=== PATIENT | male | born 1960 | race Caucasian/White ===

== ENCOUNTER 2017-05-13 12:08 | Inpatient (IN) | payer MEDICARE, MEDICAID ==
[2017-05-07 16:43] LABS: BASOPHILS % (AUTO) 0.2 % (0-1); EOSINOPHILS # (AUTO) 0.1 X10'3 (0-0.9); EOSINOPHILS % (AUTO) 1.3 % (0-6); LYMPHOCYTES # (AUTO) 1.9 X10'3 (1.1-4.8); LYMPHOCYTES % (AUTO) 25.2 % (21-51); MEAN CORPUSCULAR HEMOGLOBIN 30.3 PG (27.0-31.0); MEAN CORPUSCULAR HGB CONC 34.1 % (33.0-36.5); MEAN PLATELET VOLUME 8.4 FL (7.4-10.4); MONOCYTES # (AUTO) 0.4 X10'3 (0-0.9); MONOCYTES % (AUTO) 5.2 % (2-12); NEUTROPHILS # (AUTO) 5.1 X10'3 (1.8-7.7); NEUTROPHILS % (AUTO) 68.1 % (42-75); PRE OP HEMATOCRIT 40.9 % (42.0-52.0); PRE OP HEMOGLOBIN 13.9 g/dL (14.0-17.9); PRE OP PLATELET COUNT 187 X10'3 (140-440); RED BLOOD COUNT 4.59 X10'6 (4.70-6.10); RED CELL DISTRIBUTION WIDTH 13.1 % (11.5-14.5)
[2017-05-07 16:53] LABS: PRE OP PROTIME 10.4 SECONDS (9.0-12.0)
[2017-05-07 16:53] LABS: CLARITY,URINE Clear (Clear); COLOR,URINE Yellow (Yellow); GLUCOSE, URINE Negative (Neg); KETONES,URINE Negative (Neg); LEUKOCYTE ESTERASE ,URINE Negative (Neg); NITRITES, URINE Negative (Neg); OCCULT BLOOD,URINE Negative (Neg); PROTEIN,URINE Negative (Neg)
[2017-05-07 16:55] LABS: UA COLLECTION TYPE NON-SPECIFIED
[2017-05-07 16:57] LABS: ALBUMIN 3.6 G/DL (3.4-5.0); ALKALINE PHOSPHATASE 46 IU/L (46-116); BLOOD UREA NITROGEN 18 MG/DL (7-18); BUN/CREATININE RATIO 19.8 (5.4-32.0); CALCIUM 8.6 MG/DL (8.5-10.1); CHLORIDE 104 MMOL/L (99-107); CREATININE 0.91 MG/DL (0.60-1.10); PRE OP ALT 43 U/L (30-65); PRE OP ANION GAP 6 (8-16); PRE OP AST 26 U/L (10-37); PRE OP BILIRUB, TOTAL 0.5 MG/DL (0.0-1.0); PRE OP GLUCOSE 103 MG/DL (70-104); PRE OP POTASSIUM 4.3 MMOL/L (3.4-5.1); PRE OP SODIUM 138 MMOL/L (135-145); TOTAL PROTEIN 7.1 G/DL (6.4-8.2); eGFR 86 ML/MIN
[~2017-05-13] VITALS: Ht 170.2 cm; Wt 109.0 kg
[2017-05-13] VITALS (17 sets, daily range): BP systolic 93–157; BP diastolic 44–84
[~2017-05-13 12:08] MED LIST: ASPI-1265 PO; ATOR40TA PO; BACL20TA PO; CARV-50 PO; DOCUMENT DATE & TIME OF BETA-BLOCKER PO ONE; GABA; GABA600T2 PO; MACA500C; POLY17PO10 PO; ROPIVAcaine 0.5% (5mg/ml) 30ml vial ONE; TIZA4CAP PO; TRAZ-146 PO; VALE500C; acetaminophen 325mg tablet PO ONE; ceFAZolin inj. 2,000 MG in dextrose 5%-water 100 ML IV ONE; cefazolin/dext.iso 2gm/50ml 50 ML IV ONE; celeCOXIB 100mg capsule PO ONE; epiNEPHrine 1 mg/ml inj ONE; famotidine 20mg tablet PO ONE; gabapentin 300mg capsule PO ONE; ketorolac trometh. 30mg/ml inj. ONE; metoclopramide 5 mg/ml inj IV ONE; oxyCODONE SR 10mg (sust. release) tab PO ONE; ringers solution, lacted 1,000 ML IV SCH; tranexamic acid inj. 1,000 MG in normal saline 100ml IV soln 90 ML IV ONE; vancomycin 1,000mg inj ONE; vancomycin inj 1,500 MG in normal saline 300ml IV soln IV ONE
[2017-05-13] MEDS ORDERED: ringers solution, lacted 1,000 ML IV SCH (12:15)
[2017-05-13] MEDS ORDERED: ondansetron/PF 4mg/2ml inj IV PRN ×2 (12:15→18:00)
[2017-05-13] MEDS ORDERED: meperidine/PF 25mg/ml syringe IV PRN ×3 (12:15)
[2017-05-13] MEDS ORDERED: proCHLORperazine 10 MG/2 ml inj IV PRN (12:15)
[2017-05-13] MEDS ORDERED: LIDOcaine 1% (10mg/ml) 2ml vial ONE (12:26)
[2017-05-13] MEDS ORDERED: MIDAZolam 1mg/ml 10ml vial ONE (14:25)
[2017-05-13] MEDS ORDERED: fentaNYL/PF 50MCG/1 ML 2ML syringe ONE (14:25)
[2017-05-13] MEDS ORDERED: glycopyrrolate 0.2mg/ml inj ONE (14:37)
[2017-05-13] MEDS ORDERED: cloNIDine hcl/PF 100mcg/ml inj ONE (15:13)
[2017-05-13] MEDS ORDERED: ROPIVAcaine 0.5% (5mg/ml) 30ml vial ONE (17:30)
[2017-05-13] MEDS ORDERED: oxyCODONE/APAP 10/325mg tablet PO PRN (18:00)
[2017-05-13] MEDS ORDERED: HYDROmorphone inj. 0.5 MG/0.5 ML DISP.SYRIN IV PRN ×2 (18:00)
[2017-05-13] MEDS ORDERED: acetaminophen 325mg tablet PO PRN (18:00)
[2017-05-13] MEDS ORDERED: bisacodyl 10mg suppository rectal RC PRN (18:00)
[2017-05-13] MEDS ORDERED: magnesium hydroxide 30ml (MOM) UD suspension PO PRN (18:00)
[2017-05-13] MEDS ORDERED: diphenhydrAMINE 25mg capsule PO PRN ×2 (18:00)
[2017-05-13] MEDS ORDERED: gabapentin 300mg capsule PO SCH ×2 (21:00→23:00)
[2017-05-13] MEDS ORDERED: sennosides 8.6mg tablet PO SCH (21:00)
[2017-05-13] MEDS: oxyCODONE/APAP 10/325mg tablet PO SCH ×2 (21:07→23:28)
[2017-05-13] MEDS: ascorbic acid 500mg tablet PO SCH (21:07)
[2017-05-13] MEDS: celeCOXIB 100mg capsule PO SCH (21:07)
[2017-05-13] MEDS: potassium cl 20mEq in 1/2 NS 1,000 ML IV SCH (21:11)
[2017-05-13] MEDS ORDERED: MORP-64 PO (22:32)
[2017-05-13] MEDS ORDERED: baclofen 10mg tablet PO SCH ×2 (23:00→23:11)
[2017-05-13] MEDS ORDERED: traZODone 50mg tablet PO SCH (23:15)
[2017-05-13] MEDS: morphine ER 15mg tablet PO SCH (23:28)
[2017-05-13] MEDS: cyclobenzaprine 10mg tablet PO SCH (23:35)
[2017-05-13] MEDS: ceFAZolin 2gm in dextrose, iso 50 ML IV SCH (23:35)
[2017-05-14] VITALS (7 sets, daily range): BP systolic 95–117; BP diastolic 49–74
[2017-05-14] MEDS ORDERED: ketorolac tromethamine 15mg/ml inj. IV ONE (01:05)
[2017-05-14] MEDS: potassium cl 20mEq in 1/2 NS 1,000 ML IV SCH ×2 (01:57→08:38)
[2017-05-14] MEDS: oxyCODONE/APAP 10/325mg tablet PO PRN ×2 (05:23→09:51)
[2017-05-14 06:42] LABS: BASOPHILS % (AUTO) 0 % (0-1); EOSINOPHILS # (AUTO) 0.2 X10'3 (0-0.9); HEMOGLOBIN 11.4 g/dl (14.0-17.9); LYMPHOCYTES # (AUTO) 0.7 X10'3 (1.1-4.8); LYMPHOCYTES % (AUTO) 6.8 % (21-51); MEAN CORPUSCULAR HGB CONC 33.4 % (33.0-36.5); MEAN CORPUSCULAR VOLUME 89.6 FL (78-98); MEAN PLATELET VOLUME 8.9 FL (7.4-10.4); MONOCYTES # (AUTO) 0.4 X10'3 (0-0.9); MONOCYTES % (AUTO) 3.2 % (2-12); NEUTROPHILS # (AUTO) 9.7 X10'3 (1.8-7.7); PLATELET COUNT 161 X10'3 (140-440); RED CELL DISTRIBUTION WIDTH 13.6 % (11.5-14.5)
[2017-05-14] MEDS ORDERED: LACTOBACILLUS RHAMNOSUS GG 15 billion unit sprinkle caps PO SCH (07:30)
[2017-05-14] MEDS ORDERED: gabapentin 300mg capsule PO SCH (08:00)
[2017-05-14] MEDS ORDERED: polyethylene glycol 3350 17gm powd pack PO SCH (08:00)
[2017-05-14] MEDS ORDERED: multivitamins, therapeutics tablet PO SCH (08:00)
[2017-05-14] MEDS ORDERED: carVEDilol 12.5mg tablet PO SCH (08:00)
[2017-05-14 08:14] LABS: ANION GAP 7 (8-16); CHLORIDE 109 MMOL/L (99-107); POTASSIUM 4.8 MMOL/L (3.5-5.1); SODIUM 141 MMOL/L (135-145); TOTAL CARBON DIOXIDE 25.1 MMOL/L (24-32)
[2017-05-14] MEDS ORDERED: aspirin 325mg tablet PO SCH (08:30)
[2017-05-14] MEDS: celeCOXIB 100mg capsule PO SCH (08:35)
[2017-05-14] MEDS: cyclobenzaprine 10mg tablet PO SCH (08:36)
[2017-05-14] MEDS: morphine ER 15mg tablet PO SCH (08:36)
[2017-05-14] MEDS: ascorbic acid 500mg tablet PO SCH (08:37)
[2017-05-14] MEDS: ceFAZolin 2gm in dextrose, iso 50 ML IV SCH (08:38)
[2017-05-14] MEDS ORDERED: ASPI-1 PO (08:58)
[2017-05-14] MEDS ORDERED: WALKERFR (08:58)
[2017-05-14] MEDS ORDERED: atorvastatin 20mg tablet PO SCH (21:00)
== END 2017-05-14 12:20 | disposition home or self-care (01) | DRG 467 ==
LOC: PAS IN 12:08 → EDSTATUS 13:30 → ORTHO 4S 19:27
PROVIDERS: ADMIT Orthopaedic Surgery; ATTEND Orthopaedic Surgery
PROC: 0SRC0J9 Replacement of Right Knee Joint with Synthetic Substitute, Cemented, Open Approach (ICD-10-PCS; 2017-05-13)
PROC: 3E0T3BZ Introduction of Anesthetic Agent into Peripheral Nerves and Plexi, Percutaneous Approach (ICD-10-PCS; 2017-05-13)
PROC: 0SPC0JZ Removal of Synthetic Substitute from Right Knee Joint, Open Approach (ICD-10-PCS; principal; 2017-05-13 14:22)
DX: T84.032A Mechanical loosening of internal right knee prosthetic joint, initial encounter (principal); D62 Acute posthemorrhagic anemia; I42.9 Cardiomyopathy, unspecified; E78.5 Hyperlipidemia, unspecified; I10 Essential (primary) hypertension; I25.10 Atherosclerotic heart disease of native coronary artery without angina pectoris; Y79.2 Prosthetic and other implants, materials and accessory orthopedic devices associated with adverse incidents; G89.29 Other chronic pain; Y83.1 Surgical operation with implant of artificial internal device as the cause of abnormal reaction of the patient, or of later complication, without mention of misadventure at the time of the procedure; M54.9 Dorsalgia, unspecified; Z95.5 Presence of coronary angioplasty implant and graft; Z91.041 Radiographic dye allergy status; Z79.899 Other long term (current) drug therapy; Z79.01 Long term (current) use of anticoagulants; Z79.82 Long term (current) use of aspirin; Z80.9 Family history of malignant neoplasm, unspecified; Y92.89 Other specified places as the place of occurrence of the external cause
CPT/HCPCS: 36415; 71020; 73560; 80051; 80053; 81003; 85025; 85610; 85730; 86885; 86900; 86901; 87070; 93005; 97110; 97116; 97161; A4615; A6455; C1713; C1758; C1776; J0171; J0690; J0735; J1170; J1885; J2250; J2270; J2765; J2795; J3010; J3370; J3490; J7060; J7120